=== PATIENT | female | born 1995 | race Caucasian/White ===

== ENCOUNTER 2016-11-22 13:59 | Emergency (ER) | payer OTHER ==
[~2016-11-22] VITALS: Ht 165.1 cm; Wt 54.4 kg
[~2016-11-22 13:59] MED LIST: ORTHO TRI-CYCL1 EACH PO; TRAMADOL HCL50 MG ORAL
[2016-11-22] MEDS ORDERED: NKM (14:19)
[2016-11-22 14:25] VITALS: BP 120/82
[2016-11-22] MEDS ORDERED: Lidocaine 2% Visc 15ml soln ORAL ONE (14:30)
[2016-11-22] MEDS ORDERED: Mylanta II UD 30ml ORAL ONE (14:30)
[2016-11-22] MEDS ORDERED: Dicyclomine HCl 10mg/5ml oral soln ORAL ONE (14:30)
[2016-11-22 14:47] LABS: APPEARANCE,URINE SLIGHTLY CLOUDY; KETONES,URINE NEGATIVE (NEGATIVE); LEUKOCYTE ESTERASE ,URINE 1+ (NEGATIVE); NITRITE,URINE NEGATIVE (NEGATIVE); PH,URINE 7 (4.5-8.0); PROTEIN,URINE NEGATIVE (NEGATIVE); UROBILINOGEN,URINE NORMAL MG/DL (0.0-1.0)
[2016-11-22 15:14] LABS: AMORPHOUS SEDIMENT,UR MODERATE /LPF; BACTERIA,URINE FEW /HPF; RBC,URINE 0-2 /HPF (0 - 2); SQUAMOUS EPITHELIAL CELL,UR MODERATE /LPF (NONE/OCC); WBC,URINE 0-2 /HPF (0 - 2)
[2016-11-22 15:42] LABS: BASOPHILS % (AUTO) 1.3 % (0.0-2.0); EOSINOPHILS % (AUTO) 1.8 % (0.0-3.0); LYMPHOCYTES % (AUTO) 26.8 % (20.0-45.0); MEAN CORPUSCULAR HEMOGLOBIN 33.8 PG (27.0-31.0); MEAN CORPUSCULAR HGB CONC 34.4 G/DL (32.0-36.0); MEAN CORPUSCULAR VOLUME 98 FL (80-99); MEAN PLATELET VOLUME 7.8 FL (6.5-10.1); MONOCYTES % (AUTO) 9.9 % (1.0-10.0); NEUTROPHILS % (AUTO) 60.1 % (45.0-75.0); PLATELET COUNT 306 K/UL (150-450); RED BLOOD COUNT 4.48 M/UL (4.20-5.40); RED CELL DISTRIBUTION WIDTH 10.9 % (11.6-14.8); WHITE BLOOD COUNT 7.1 K/UL (4.8-10.8)
[2016-11-22 16:00] VITALS: BP 110/69
[2016-11-22 16:13] LABS: ALANINE AMINOTRANSFERASE 17 U/L (3-33); ALBUMIN/GLOBULIN RATIO 1.8 (1.0-2.7); ANION GAP 15 (5-15); ASPARTATE AMINO TRANSFERASE 19 U/L (5-40); CARBON DIOXIDE 26 mEQ/L (20-30); CHLORIDE 97 mEQ/L (98-107); CREATININE 0.8 mg/dL (0.5-0.9); GLOMERULAR FILTRATION RATE > 60 mL/min (>60); HEMOLYSIS 10; POTASSIUM 3.9 mEQ/L (3.4-4.9); SODIUM 138 mEQ/L (135-145); TOTAL PROTEIN 7.8 g/dL (6.6-8.7)
[2016-11-22] MEDS ORDERED: ZOFRAN4 M3 ORAL (16:24)
[2016-11-22 16:32] VITALS: BP 110/69
--- NOTE | 2016-11-22 22:51 | Emergency Room Report ---
History of Present Illness General Chief Complaint: Abdominal Pain Source: Patient Present Illness HPI The patient is a 20-year-old female who denies any medical history presenting for abdominal pain, nausea, and diarrhea. The patient denies any recent travel but does admit to her mother as sick contact who has had similar symptoms. The patient describes pain as a 4-10 dull ache to the mid abdomen and does not radiate. No known provoking relieving factors. The patient does admit to nausea but denies any vomiting. She denies any other symptoms including fever, chills, rash, FORBES, dizziness, CP Allergies: Coded Allergies: No Known Allergies (Unverified , 10/20/14) Patient History Past Medical History: see triage record Pertinent Family History: none Last Menstrual Period: 10/21/16 Reviewed Nursing Documentation: PMH: Agreed, PSxH: Agreed Nursing Documentation-PMH Past Medical History: No Stated History Review of Systems All Other Systems: negative except mentioned in HPI Physical Exam Vital Signs Date Time Temp Pulse Resp B/P Pulse Ox O2 Delivery O2 Flow Rate FiO2 11/22/16 14:14 98.1 85 16 120/82 99 Room Air Sp02 EP Interpretation: reviewed, normal General Appearance: no apparent distress, alert, GCS 15, non-toxic Head: normocephalic, atraumatic Eyes: bilateral eye PERRL, bilateral eye normal inspection ENT: hearing grossly normal, normal pharynx, no angioedema, normal voice Respiratory: chest non-tender, lungs clear, normal breath sounds, speaking full sentences Gastrointestinal: normal bowel sounds, soft, non-distended, no guarding, no rebound, tenderness - epigastric Genitourinary: normal inspection, no CVA tenderness Neurologic: alert, oriented x3, responsive, motor strength/tone normal, sensory intact, speech normal Psychiatric: judgement/insight normal, memory normal, mood/affect normal, no suicidal/homicidal ideation Skin: normal color, no rash, warm/dry, well hydrated Lymphatic: no adenopathy Medical Decision Making PA Attestation Dr. dahl is my supervising physician. Patient management was discussed with my supervising physician Diagnostic Impression: Primary Impression: Gastroenteritis ER Course The patient is a 20-year-old female presenting with abdominal pain, nausea, and diarrhea Differential diagnoses considered but not limited to: Gastroenteritis, GERD, gastritis, appendicitis, pancreatitis, menstruation PE: Vitals WNL. NAD. Abdomen: Normal appearance. Non distended. No ecchymosis. + Epigastric TTP. No McBurney point tenderness. No guarding. No CVA tenderness Lab work is unremarkable. The patient was given a GI cocktail, IV fluids, Zofran and is feeling better. To be discharged home with a prescription for Zofran and will continue to take in plenty fluids. ER precautions are given Laboratory Tests Test 11/22/16 14:20 11/22/16 14:44 Urine Color Pale yellow Urine Appearance Slightly cloudy Urine pH 7 (4.5-8.0) Urine Specific [place] 1.010 (1.005-1.035) Urine Protein Negative (NEGATIVE) Urine Glucose (UA) Negative (NEGATIVE) Urine Ketones Negative (NEGATIVE) Urine Occult Blood Negative (NEGATIVE) Urine Nitrite Negative (NEGATIVE) Urine Bilirubin Negative (NEGATIVE) Urine Urobilinogen Normal MG/DL (0.0-1.0) Urine Leukocyte Esterase 1+ (NEGATIVE) H Urine RBC 0-2 /HPF (0 - 2) Urine WBC 0-2 /HPF (0 - 2) Urine Squamous Epithelial Cells Moderate /LPF (NONE/OCC) H Urine Amorphous Sediment Moderate /LPF (NONE) H Urine Bacteria Few /HPF (NONE) Urine HCG, Qualitative Negative White Blood Count 7.1 K/UL (4.8-10.8) Red Blood Count 4.48 M/UL (4.20-5.40) Hemoglobin 15.1 G/DL (12.0-16.0) Hematocrit 44.0 % (37.0-47.0) Mean Corpuscular Volume 98 FL (80-99) Mean Corpuscular Hemoglobin 33.8 PG (27.0-31.0) H Mean Corpuscular Hemoglobin Concent 34.4 G/DL (32.0-36.0) Red Cell Distribution Width 10.9 % (11.6-14.8) L Platelet Count 306 K/UL (150-450) Mean Platelet Volume 7.8 FL (6.5-10.1) Neutrophils (%) (Auto) 60.1 % (45.0-75.0) Lymphocytes (%) (Auto) 26.8 % (20.0-45.0) Monocytes (%) (Auto) 9.9 % (1.0-10.0) Eosinophils (%) (Auto) 1.8 % (0.0-3.0) Basophils (%) (Auto) 1.3 % (0.0-2.0) Sodium Level 138 mEQ/L (135-145) Potassium Level 3.9 mEQ/L (3.4-4.9) Chloride Level 97 mEQ/L (98-107) L Carbon Dioxide Level 26 mEQ/L (20-30) Anion Gap 15 (5-15) Blood Urea Nitrogen 10 mg/dL (7-23) Creatinine 0.8 mg/dL (0.5-0.9) Estimate Glomerular Filtration Rate > 60 mL/min (>60) Glucose Level 92 mg/dL (74-106) Calcium Level 10.0 mg/dL (8.6-10.2) Total Bilirubin 0.5 mg/dL (0.0-1.2) Aspartate Amino Transferase (AST) 19 U/L (5-40) Alanine Aminotransferase (ALT) 17 U/L (3-33) Alkaline Phosphatase 74 U/L (35-104) Total Protein 7.8 g/dL (6.6-8.7) Albumin 5.1 g/dL (3.5-5.2) Globulin 2.7 g/dL Albumin/Globulin Ratio 1.8 (1.0-2.7) Lab Results Impression All unremarkable Last Vital Signs Date Time Temp Pulse Resp B/P Pulse Ox O2 Delivery O2 Flow Rate FiO2 11/22/16 16:32 98.0 79 16 110/69 99 Room Air Status: improved Disposition: HOME, SELF-CARE Condition: Improved Scripts Ondansetron* (ZOFRAN*) 4 Mg Tablet 4 MG ORAL Q6H Y for Nausea & Vomiting, #15 TAB Prov: JUAN SANTILLAN 11/22/16 Patient Instructions: Viral Gastroenteritis, Adult, Abdominal Pain, Adult Additional Instructions: I discussed my findings with the patient. All questions and concerns have been answered. Treatment and medication compliance have been addressed. I advised the patient that they need to follow up with PMD in 3-5 days. Return to ED if symptoms worsen, new symptoms arise, or if needed for any reason. Patient verbalized understanding of discharge instructions. JUAN SANTILLAN November 22, 2016 22:51
== END 2016-11-22 16:32 | disposition home or self-care (01) ==
LOC: EMR 14:46
DX: K52.9 Noninfective gastroenteritis and colitis, unspecified (principal)
CPT/HCPCS: 36415; 80053; 81003; 81025; 85025; 96360; 96374; 99284; J2405

== ENCOUNTER 2017-03-14 19:05 | Emergency (ER) | payer OTHER ==
[~2017-03-14] VITALS: Ht 165.1 cm; Wt 61.2 kg
[~2017-03-14 19:05] MED LIST changes: +NKM; +ZOFRAN4 M3 ORAL
[2017-03-14] MEDS ORDERED: MELATONIN1 M2 PO (19:13)
[2017-03-14 19:25] VITALS: BP 125/83
[2017-03-14] MEDS ORDERED: LORazepam 0.5mg tab ORAL ONE (19:30)
--- NOTE | 2017-03-14 19:52 | Emergency Room Report ---
History of Present Illness General Chief Complaint: Flu Like Symptoms Source: Patient Present Illness HPI 21 YO Female presents to the ED c/o feeling short of breath, as though she cannot inhale completely. denies cardiac hx, denies night sweats or changes in weight, reports intermittent cough x 2 days, denies wheezing, fevers, chills, sore throat, body aches, or rashes. pt. reports occasional heartburn, but not regularly. was on prozac for JOJO several years ago. Denies recent travel, denies painful respirations. Denies sputum production. Patient states her episodes of feeling short of breath are intermittent x2 weeks and began just prior to her finals. 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 Denies Palpitations, LOC, AMS, dizziness, Changes in Vision, Sensation, paresthesias, or a sudden severe headache. Allergies: Coded Allergies: No Known Allergies (Unverified , 10/20/14) Patient History Past Medical History: see triage record Past Surgical History: none Pertinent Family History: none Last Menstrual Period: doesnt remember Now: No Immunizations: UTD Reviewed Nursing Documentation: PMH: Agreed, PSxH: Agreed Nursing Documentation-PMH Past Medical History: No Stated History Review of Systems All Other Systems: negative except mentioned in HPI Physical Exam Vital Signs Date Time Temp Pulse Resp B/P (MAP) Pulse Ox O2 Delivery O2 Flow Rate FiO2 03/14/17 19:08 98.1 79 20 125/83 100 Room Air Sp02 EP Interpretation: reviewed, normal General Appearance: no apparent distress, alert, GCS 15, non-toxic Head: normocephalic, atraumatic Eyes: bilateral eye normal inspection, bilateral eye PERRL ENT: hearing grossly normal, normal pharynx, no angioedema, normal voice, uvula midline, moist mucus membranes Neck: full range of motion, supple/symm/no masses Respiratory: chest non-tender, lungs clear, normal breath sounds, no respiratory distress, no wheezing, speaking full sentences Cardiovascular #1: regular rate, rhythm, no edema Gastrointestinal: normal bowel sounds, non tender, soft, no guarding, no rebound Rectal: deferred Genitourinary: normal inspection, no CVA tenderness Musculoskeletal: back normal, gait/station normal, normal range of motion, non- tender Neurologic: alert, oriented x3, responsive, motor strength/tone normal, sensory intact, speech normal Psychiatric: judgement/insight normal, memory normal, mood/affect normal, anxious Skin: normal color, no rash, warm/dry, well hydrated Lymphatic: no adenopathy Medical Decision Making PA Attestation Dr. Arreola is my supervising Physician whom patient management has been discussed with. Diagnostic Impression: Primary Impression: SOB (shortness of breath) Additional Impressions: History of anxiety History of heartburn ER Course 21 YO Female presents to the ED c/o feeling short of breath, as though she cannot inhale completely. denies cardiac hx, denies night sweats or changes in weight, reports intermittent cough x 2 days, denies wheezing, fevers, chills, sore throat, body aches, or rashes. pt. reports occasional heartburn, but not regularly. was on prozac for JOJO several years ago. Denies recent travel, denies painful respirations. Denies sputum production. Patient states her episodes of feeling short of breath are intermittent x2 weeks and began just prior to her finals. 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 Denies Palpitations, LOC, AMS, dizziness, Changes in Vision, Sensation, paresthesias, or a sudden severe headache. Ddx considered but are not limited to anxiety, [place], PE, asthma, thyroid storm, hyperthyroid, EPS Vital signs: are WNL, pt. is afebrile H&PE are most consistent with anxiety attack ORDERS: none required at this time, the diagnosis is clinical ED INTERVENTIONS: -0.5 mg Ativan PO -Zantac 150mg PO -Pt states her symptoms have resolved. I do not suspect an emergent condition at this time. with current presentation pt. is stable for close outpatient follow up. D/w pt. to return to ED with worsening or new symptoms. DISCHARGE: At this time pt. is stable for d/c to home. Will provide printed patient care instructions, and any necessary prescriptions. Care plan and follow up instructions have been discussed with the patient prior to discharge. Last Vital Signs Date Time Temp Pulse Resp B/P (MAP) Pulse Ox O2 Delivery O2 Flow Rate FiO2 03/14/17 19:25 98.1 20 125/83 100 Room Air 03/14/17 19:08 79 Disposition: HOME, SELF-CARE Condition: Stable Scripts Ranitidine Hcl* (ZANTAC*) 150 Mg Tablet 150 MG ORAL TWICE A DAY for 14 Days, #28 TAB Prov: Dania Haney 03/14/17 Buspirone Hcl* (BUSPAR*) 10 Mg Tablet 10 MG ORAL THREE TIMES A DAY, #15 TAB 0 Refills Prov: Dania Haney 03/14/17 Patient Instructions: Heartburn, Panic Attacks, [id number] Additional Instructions: Take medications as directed. Follow up with a Primary Care Provider in 3-5 days, even if your symptoms have resolved. --Please review list of primary care clinics, if you do not already have a primary care provider Return sooner to ED if new symptoms occur, or current symptoms become worse. - Please note that this Emergency Department Report was dictated using [email or web address] of quality improvement technology software, occasionally this can lead to erroneous entry secondary to interpretation by the dictation equipment. Dania Haney Mar 14, 2017 19:52
[2017-03-14] MEDS ORDERED: BUSPAR10 MG ORAL (20:06)
[2017-03-14] MEDS ORDERED: ZANTAC150 MG ORAL (20:06)
[2017-03-14 20:27] VITALS: BP 125/83
== END 2017-03-14 20:23 | disposition home or self-care (01) ==
LOC: EMR 19:41
DX: R06.02 Shortness of breath (principal); F41.9 Anxiety disorder, unspecified; R05 Cough
CPT/HCPCS: 99284

== ENCOUNTER 2017-03-22 19:11 | Emergency (ER) | payer OTHER ==
[~2017-03-22] VITALS: Ht 165.1 cm; Wt 61.2 kg
[~2017-03-22 19:11] MED LIST changes: +BUSPAR10 MG ORAL; +MELATONIN1 M2 PO; +ZANTAC150 MG ORAL
[2017-03-22 19:20] VITALS: BP 126/86
[2017-03-22] MEDS ORDERED: ROBAXIN-750750 MG PO (19:53)
[2017-03-22] MEDS ORDERED: IBUPROFEN600 MG ORAL (19:53)
[2017-03-22] MEDS ORDERED: Methocarbamol 750mg tab ORAL ONE (20:00)
[2017-03-22 20:25] VITALS: BP 126/86
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
== END 2017-03-22 20:25 | disposition home or self-care (01) ==
LOC: EMR 19:30
DX: M62.838 Other muscle spasm (principal); S16.1XXA Strain of muscle, fascia and tendon at neck level, initial encounter; V49.40XA Driver injured in collision with unspecified motor vehicles in traffic accident, initial encounter; Y92.410 Unspecified street and highway as the place of occurrence of the external cause
CPT/HCPCS: 99284

== ENCOUNTER 2017-10-13 12:54 | Emergency (ER) | payer OTHER ==
[~2017-10-13] VITALS: Ht 165.1 cm; Wt 59.0 kg
[~2017-10-13 12:54] MED LIST changes: +IBUPROFEN600 MG ORAL; +ROBAXIN-750750 MG PO
[2017-10-13] MEDS ORDERED: PEPCID40 MG PO (13:29)
[2017-10-13] MEDS ORDERED: Mylanta II UD 30ml ORAL ONE (13:30)
[2017-10-13] MEDS ORDERED: Lidocaine 2% Visc 15ml soln ORAL ONE (13:30)
[2017-10-13] MEDS ORDERED: Dicyclomine HCl 10mg/5ml oral soln ORAL ONE (13:30)
--- NOTE | 2017-10-13 13:31 | Emergency Room Report ---
History of Present Illness General Chief Complaint: Abdominal Pain Source: Patient Present Illness HPI 21-year-old female with no sig pmhx p/w epigastric abd pain for for one week. Patient states pain started gradually , localized to epigastric area, sometimes radiates up towards chest and down towards lower abdomen burning in nature, intermittent. No relieving or exacerbating factors. Denies nvd. No black or bloody stools Denies fever, chills. No hx of abdominal surgeries. No hx of endoscopies/colonoscopies. States that her dog had worms and she is concerned that she also has worms Allergies: Coded Allergies: No Known Allergies (Unverified , 10/20/14) Patient History Past Medical History: see triage record Past Surgical History: none Pertinent Family History: none Last Menstrual Period: 10/05/17 Reviewed Nursing Documentation: PMH: Agreed; PSxH: Agreed Nursing Documentation-PMH Past Medical History: No Stated History Review of Systems All Other Systems: negative except mentioned in HPI Physical Exam Vital Signs Date Time Temp Pulse Resp B/P (MAP) Pulse Ox O2 Delivery O2 Flow Rate FiO2 10/13/17 12:57 98.4 84 18 123/88 96 Room Air 98.4 Sp02 EP Interpretation: reviewed, normal General Appearance: normal inspection, well appearing, no apparent distress, alert, GCS 15, non-toxic Head: normocephalic, atraumatic Eyes: bilateral eye normal inspection, bilateral eye PERRL, bilateral eye EOMI ENT: normal ENT inspection, normal pharynx, normal voice, moist mucus membranes Neck: normal inspection, full range of motion, supple Respiratory: normal inspection, lungs clear, normal breath sounds, no respiratory distress, no retraction, no wheezing, speaking full sentences, chest symmetrical Cardiovascular #1: normal inspection, regular rate, rhythm, no edema, normal capillary refill Cardiovascular #2: 2+ radial (R), 2+ radial (L) Gastrointestinal: normal inspection, non tender, soft, non-distended, no guarding Musculoskeletal: normal inspection, back normal, normal range of motion, non- tender Neurologic: normal inspection, alert, oriented x3, responsive, motor strength/ tone normal, sensory intact, normal gait, speech normal Psychiatric: normal inspection, judgement/insight normal, memory normal Skin: normal inspection, normal color, no rash, warm/dry, well hydrated, normal turgor Medical Decision Making Diagnostic Impression: Primary Impression: Abdominal pain ER Course 21-year-old female with epigastric abdominal pain Abdominal exam is unremarkable Differential Diagnosis: Gastritis, gastroenteritis, cholecystitis, appendicitis, diverticulitis, UTI/ pyelo At this time abdomen is soft nontender, not likely to have acute intra- abdominal surgical pathology, will hold CT for now. Plan: Basic labs, ua Pepcid, maalox, pain control, IVF ER course: Patient has remained stable during ED stay. pain improved Disposition: Patient is to be discharged to home. Prescriptions given are Pepcid Patient is instructed to follow up with their primary care doctor within 5 days. Patient is instructed to follow up with gastroenterology if she continues to have persistent symptoms she may need endoscopy Strict return precautions discussed with patient such as fever, chills, worsening/severe abdominal pain, nausea, vomiting, black or bloody stools, which may indicate severe illness. Patient verbalizes understanding and agrees with plan. Please note that this Emergency Department Report was dictated using [employer] sweatband operator technology software, occasionally this can lead to erroneous entry secondary to interpretation by the dictation equipment Laboratory Tests Test 10/13/17 13:02 10/13/17 13:40 Urine Color Pale yellow Urine Appearance Clear Urine pH 8 (4.5-8.0) Urine Specific [place] 1.010 (1.005-1.035) Urine Protein Negative (NEGATIVE) Urine Glucose (UA) Negative (NEGATIVE) Urine Ketones Negative (NEGATIVE) Urine Occult Blood Negative (NEGATIVE) Urine Nitrite Negative (NEGATIVE) Urine Bilirubin Negative (NEGATIVE) Urine Urobilinogen Normal MG/DL (0.0-1.0) Urine Leukocyte Esterase Negative (NEGATIVE) Urine HCG, Qualitative Negative (NEGATIVE) Sodium Level 142 MMOL/L (136-145) Potassium Level 4.2 MMOL/L (3.5-5.1) Chloride Level 103 MMOL/L (98-107) Carbon Dioxide Level 32 MMOL/L (21-32) Anion Gap 7 mmol/L (5-15) Blood Urea Nitrogen 9 mg/dL (7-18) Creatinine 0.8 MG/DL (0.55-1.30) Estimate Glomerular Filtration Rate > 60 mL/min (>60) Glucose Level 93 MG/DL (74-106) Calcium Level 9.5 MG/DL (8.5-10.1) Total Bilirubin 0.5 MG/DL (0.2-1.0) Aspartate Amino Transferase (AST) 14 U/L (15-37) L Alanine Aminotransferase (ALT) 23 U/L (12-78) Alkaline Phosphatase 60 U/L (46-116) Total Protein 7.5 G/DL (6.4-8.2) Albumin 4.4 G/DL (3.4-5.0) Globulin 3.1 g/dL Albumin/Globulin Ratio 1.4 (1.0-2.7) Lipase 196 U/L (73-393) White Blood Count 6.7 K/UL (4.8-10.8) Red Blood Count 4.37 M/UL (4.20-5.40) Hemoglobin 14.8 G/DL (12.0-16.0) Hematocrit 42.5 % (37.0-47.0) Mean Corpuscular Volume 97 FL (80-99) Mean Corpuscular Hemoglobin 33.9 PG (27.0-31.0) H Mean Corpuscular Hemoglobin Concent 34.8 G/DL (32.0-36.0) Red Cell Distribution Width 10.3 % (11.6-14.8) L Platelet Count 263 K/UL (150-450) Mean Platelet Volume 7.0 FL (6.5-10.1) Neutrophils (%) (Auto) 57.2 % (45.0-75.0) Lymphocytes (%) (Auto) 29.4 % (20.0-45.0) Monocytes (%) (Auto) 8.9 % (1.0-10.0) Eosinophils (%) (Auto) 2.7 % (0.0-3.0) Basophils (%) (Auto) 1.8 % (0.0-2.0) Last Vital Signs Date Time Temp Pulse Resp B/P (MAP) Pulse Ox O2 Delivery O2 Flow Rate FiO2 10/13/17 12:57 98.4 84 18 123/88 96 Room Air 98.4 Disposition: HOME, SELF-CARE Condition: Improved Scripts Famotidine (PEPCID) 40 Mg Tablet 40 MG PO DAILY, #7 TAB 0 Refills Prov: Deandra Malave M.D. 10/13/17 Patient Instructions: Abdominal Pain, Adult Additional Instructions: PLEASE SEE YOUR PCP IN 1 WEEK PLEASE SEE A TECHNICAL SALES DIRECTOR IF YOU CONTINUE TO HAVE PERSISTENT SYMPTOMS Deandra Malave M.D. Oct 13, 2017 13:31
[2017-10-13 13:52] LABS: BASOPHILS % (AUTO) 1.8 % (0.0-2.0); EOSINOPHILS % (AUTO) 2.7 % (0.0-3.0); HEMATOCRIT 42.5 % (37.0-47.0); HEMOGLOBIN 14.8 G/DL (12.0-16.0); LYMPHOCYTES % (AUTO) 29.4 % (20.0-45.0); MEAN CORPUSCULAR VOLUME 97 FL (80-99); MONOCYTES % (AUTO) 8.9 % (1.0-10.0); NEUTROPHILS % (AUTO) 57.2 % (45.0-75.0); PLATELET COUNT 263 K/UL (150-450); RED BLOOD COUNT 4.37 M/UL (4.20-5.40); RED CELL DISTRIBUTION WIDTH 10.3 % (11.6-14.8); WHITE BLOOD COUNT 6.7 K/UL (4.8-10.8)
[2017-10-13 13:53] LABS: APPEARANCE,URINE CLEAR; BILIRUBIN, URINE NEGATIVE (NEGATIVE); COLOR,URINE PALE YELLOW; GLUCOSE, URINE (UA) NEGATIVE (NEGATIVE); KETONES,URINE NEGATIVE (NEGATIVE); LEUKOCYTE ESTERASE ,URINE NEGATIVE (NEGATIVE); NITRITE,URINE NEGATIVE (NEGATIVE); PH,URINE 8 (4.5-8.0); PROTEIN,URINE NEGATIVE (NEGATIVE); UROBILINOGEN,URINE NORMAL MG/DL (0.0-1.0)
[2017-10-13 14:02] LABS: ANION GAP 7 mmol/L (5-15); BLOOD UREA NITROGEN 9 mg/dL (7-18); CALCIUM 9.5 MG/DL (8.5-10.1); CARBON DIOXIDE 32 MMOL/L (21-32); CHLORIDE 103 MMOL/L (98-107); CREATININE 0.8 MG/DL (0.55-1.30); POTASSIUM 4.2 MMOL/L (3.5-5.1); SODIUM 142 MMOL/L (136-145)
[2017-10-13 14:07] LABS: ALANINE AMINOTRANSFERASE 23 U/L (12-78); ALBUMIN 4.4 G/DL (3.4-5.0); ALBUMIN/GLOBULIN RATIO 1.4 (1.0-2.7); ALKALINE PHOSPHATASE 60 U/L (46-116); ASPARTATE AMINO TRANSFERASE 14 U/L (15-37); BILIRUBIN,TOTAL 0.5 MG/DL (0.2-1.0)
[2017-10-13 18:57] VITALS: BP 128/72
== END 2017-10-13 14:43 | disposition home or self-care (01) ==
LOC: EMR 13:10
DX: R10.13 Epigastric pain (principal)
CPT/HCPCS: 36415; 80053; 81003; 81025; 83690; 85025; 96374; 96375; 99284; J2405; S0028

== ENCOUNTER 2018-05-13 13:08 | Emergency (ER) | payer OTHER ==
[~2018-05-13] VITALS: Ht 162.6 cm; Wt 59.0 kg
[~2018-05-13 13:08] MED LIST changes: +PEPCID40 MG PO
[2018-05-13] MEDS ORDERED: Acetaminophen 500mg (ES) tab ORAL ONE (14:15)
[2018-05-13 14:20] VITALS: BP 130/78
--- NOTE | 2018-05-13 14:52 | Diagnostic Imaging Report ---
Indication: Knee Pain 3 views of the left knee were obtained. Findings: No acute fracture, malalignment, or joint effusion are identified. Joint space is relatively well-maintained. Anterior prepatellar soft tissue swelling is noted. Impression: No acute fracture. Prepatellar contusion versus bursitis
[2018-05-13] MEDS ORDERED: CEPHALEXIN500 MG ORAL (15:00)
[2018-05-13] MEDS ORDERED: TYLENOL EXTRA500 MG ORAL (15:00)
--- NOTE | 2018-05-13 15:00 | Emergency Room Report ---
History of Present Illness General Chief Complaint: Skin Rash/Abscess Source: Patient Present Illness HPI 22-year-old female patient presents ER complaining of left knee pain for the past 2 days. Patient reports redness and swelling on the top left knee. Denies acute injury or trauma. Denies bug bite. Reports that she was on the ground and her knee rubbed against the carpet recently, states may have been caused by that. Denies fever, chest pain, shortness of breath. Denies vomiting or abdominal pain. Reports pain with ambulation. reports coworker recently had similar symptoms on lower leg. Allergies: Coded Allergies: No Known Allergies (Unverified , 10/20/14) Patient History Past Medical History: see triage record Now: No Reviewed Nursing Documentation: PMH: Agreed; PSxH: Agreed Nursing Documentation-PMH Past Medical History: No Stated History Review of Systems All Other Systems: negative except mentioned in HPI Physical Exam Vital Signs Date Time Temp Pulse Resp B/P (MAP) Pulse Ox O2 Delivery O2 Flow Rate FiO2 05/13/18 13:11 98.1 100 17 127/84 97 Room Air Sp02 EP Interpretation: reviewed, normal General Appearance: well appearing, no apparent distress, alert, GCS 15, non- toxic Head: normocephalic, atraumatic Eyes: bilateral eye normal inspection, bilateral eye PERRL ENT: hearing grossly normal, normal pharynx, no angioedema, normal voice, uvula midline, moist mucus membranes Neck: full range of motion Respiratory: lungs clear, normal breath sounds, no rhonchi, no respiratory distress, no accessory muscle use, no wheezing, speaking full sentences Cardiovascular #1: regular rate, rhythm, no edema Musculoskeletal: back normal, digits/nails normal, gait/station normal, normal range of motion, swelling - mild edema suprapatellar, other - NVI, tender - anterior left knee, suprapatellar Neurologic: alert, oriented x3, responsive, motor strength/tone normal, sensory intact Psychiatric: mood/affect normal Skin: other - erythema and edema noted over the left anterior knee, no fluctuance or induration, no red streaking, no palpable no palpable mass Medical Decision Making PA Attestation Dr. Schuster is my supervising Physician whom patient management has been discussed with. Diagnostic Impression: Primary Impression: Cellulitis ER Course Pt. presents to the ED c/o pain, reddness, and swelling over left knee. Ddx considered but are not limited to fracture, sprain, strain, contusion, dislocation. no fever, nontoxic appearing, no loss or ROM, low suspicion for septic joint. Soft compartments, no pulselessness, no pallor, no paresthesias, low suspicion for compartment syndrome at this time. Vital signs: are WNL, pt. is afebrile Ordered X-ray and pain medication. ER COURSE Provided with pain medication. An X-ray of left knee shows no acute fracture, prepatellar contusion versus bursitis the official reading. Low suspicion for septic joint. likely cellulitis causing pain symptoms. follow-up with PCP or return to ER in 2 -3 days for wound check. Crutches declined. Ankur wrap and splint declined. Patient instructed on RICE method: rest, ice, compression, elevation. Patient instructed to be WBAT Contact information for orthopedic urgent care provided, follow-up with urgent care if unable to followup with primary care provider and get referral to obgyn specialist. Followup with primary care provider. Discuss referral to ortho/pain management/ PT as needed. Discuss further imaging with MRI/CT as needed. ER precautions given. Patient reports pain symptoms improved while in the ER. DISCHARGE: -Rx provided for Tylenol for pain symptoms. -Rx provided for Keflex At this time pt. is stable for d/c to home. Patient is resting comfortably, in no acute distress, nontoxic appearing, talking without difficulty. Will provide printed patient care instructions, and any necessary prescriptions. Patient instructed to follow with primary care provider in 2-3 days and to request further follow-up as needed. Care plan and follow up instructions have been discussed with the patient prior to discharge. Take medications as directed. Patient questions asked and answered. Patient reports understanding and agreement to treatment plan. ER precautions given, patient instructed to return to ER immediately for any new or worsening of symptoms. - Please note that this Emergency Department Report was dictated using [employer] transcription supervisor technology software, occasionally this can lead to erroneous entry secondary to interpretation by the dictation equipment. Last Vital Signs Date Time Temp Pulse Resp B/P (MAP) Pulse Ox O2 Delivery O2 Flow Rate FiO2 05/13/18 13:11 98.1 100 17 127/84 97 Room Air Status: improved Disposition: HOME, SELF-CARE Condition: Stable Scripts Acetaminophen* (TYLENOL EXTRA STRENGTH*) 500 Mg Tablet 500 MG ORAL Q8H PRN for Prn Headache/Temp > 101, #30 TAB 0 Refills Prov: Eyal Stevens 05/13/18 Cephalexin* (KEFLEX*) 500 Mg Capsule 500 MG ORAL EVERY 12 HOURS, #14 CAP 0 Refills Prov: Eyal Stevens 05/13/18 Referrals: NOT CHOSEN IPA/MD,REFERRING (PCP) Patient Instructions: Cellulitis, [id number] Additional Instructions: Patient instructed to follow up with primary care provider and discuss further referral to orthopedics/physical therapy/pain management as needed. If unable to followup with PCP, followup with orthopedic urgent care in 5-7 days , call to schedule appointment. Patient instructed on RICE method: rest, ice, compression, elevation. Patient instructed to WBAT. Take medications as directed. Patient questions asked and answered. ER precautions given, patient instructed to return to ER immediately for any new or worsening of symptoms. [facility] [address] [facility] [address] [facility], [address] [email or web address] Eyal Stevens May 13, 2018 15:00
[2018-05-13 15:16] VITALS: BP 133/78
== END 2018-05-13 15:25 | disposition home or self-care (01) ==
LOC: EMR 13:50
DX: L03.116 Cellulitis of left lower limb (principal)
CPT/HCPCS: 99283

== ENCOUNTER 2018-09-20 14:07 | Emergency (ER) | payer OTHER ==
[~2018-09-20] VITALS: Ht 165.1 cm; Wt 59.0 kg
[~2018-09-20 14:07] MED LIST changes: +CEPHALEXIN500 MG ORAL; +TYLENOL EXTRA500 MG ORAL
[2018-09-20] MEDS ORDERED: IBUPROFEN600 MG ORAL (14:32)
[2018-09-20] MEDS ORDERED: AMOXICILLIN500 MG ORAL (14:32)
--- NOTE | 2018-09-20 14:32 | Emergency Room Report ---
History of Present Illness General Chief Complaint: Sore Throat Source: Patient Present Illness HPI 22-year-old female patient presents the ER complaining of sore throat for the past week. Denies abdominal pain. Denies chest pain or shortness of breath. Reports no fever however has not checked temperature. Reports is attempted gargling baking soda and other [id number]-[id number]-[id number] remedies without relief of symptoms. Reports pain with swallowing. Denies difficulty breathing. Reports swollen lymph nodes. Denies other aggravating or relieving factors. Allergies: Coded Allergies: No Known Allergies (Unverified , 10/20/14) Patient History Past Medical History: see triage record Last Menstrual Period: patient states 'missed period' Reviewed Nursing Documentation: PMH: Agreed; PSxH: Agreed Nursing Documentation-PMH Past Medical History: No Stated History Review of Systems All Other Systems: negative except mentioned in HPI Physical Exam Vital Signs Date Time Temp Pulse Resp B/P (MAP) Pulse Ox O2 Delivery O2 Flow Rate FiO2 09/20/18 14:14 98.2 83 16 128/87 97 Room Air Sp02 EP Interpretation: reviewed, normal General Appearance: well appearing, no apparent distress, alert, GCS 15, non- toxic Head: normocephalic, atraumatic Eyes: bilateral eye normal inspection, bilateral eye PERRL ENT: hearing grossly normal, normal pharynx, no angioedema, normal voice, TMs + canals normal, uvula midline, moist mucus membranes, tonsillar swelling, pharyngeal erythema, tonsillar exudate Neck: full range of motion, no meningismus, no bony tend Respiratory: lungs clear, normal breath sounds, no rhonchi, no respiratory distress, no accessory muscle use, no wheezing, speaking full sentences Cardiovascular #1: regular rate, rhythm, no edema Musculoskeletal: back normal, digits/nails normal, gait/station normal, normal range of motion, non-tender Psychiatric: mood/affect normal Lymphatic: adenopathy - cervical Medical Decision Making PA Attestation Dr. Baldwin is my supervising Physician whom patient management has been discussed with. Diagnostic Impression: Primary Impression: Tonsillitis ER Course Pt presents to ED c/o sore throat. DDX considered but are not limited to influenza, viral URI, strep throat, pharyngitis, tonsillitis. no uvula deviation, no neck stiffness, no stridor, no tripoding, low suspicion for peritonsillar abscess. VITAL SIGNS are WNL, patient is afebrile ER COURSE: tonsillar exudates, pharyngeal erythema, lymphadenopathy, no cough, likely tonsillitis. Will provide antibiotic treatment. Continue taking Tylenol for relief of symptoms. saltwater gargles. Drink plenty of fluids. Symptomatic treatment. DISCHARGE: Rx provided for amoxicillin -Rx given for Acetaminophen for fever/pain. At this time pt is stable for d/c to home. Patient resting comfortably, in no acute distress, nontoxic appearing, talking without difficulty Patient to take medications as instructed. Will provide with patient care instructions and any necessary prescriptions. Care plan and follow-up instructions provided. Patient instructed to follow-up with primary care provider in 3 - 5 days. Patient questions asked and answered. ER precautions given. Patient instructed to return to ER immediately for any new or worsening of symptoms including but not limited to fever, SOB, difficulty swallowing. - Please note that this Emergency Department Report was dictated using [employer] truck driver technology software, occasionally this can lead to erroneous entry secondary to interpretation by the dictation equipment. Last Vital Signs Date Time Temp Pulse Resp B/P (MAP) Pulse Ox O2 Delivery O2 Flow Rate FiO2 09/20/18 14:14 98.2 83 16 128/87 97 Room Air Status: improved Disposition: HOME, SELF-CARE Condition: Stable Scripts Ibuprofen* (MOTRIN*) 600 Mg Tablet 600 MG ORAL Q8H PRN for For Pain, #30 TAB 0 Refills Prov: Eyal Stevens 09/20/18 Amoxicillin* (AMOXIL*) 500 Mg Capsule 500 MG ORAL EVERY 8 HOURS for 7 Days, #21 CAP Prov: Eyal Stevens 09/20/18 Patient Instructions: Tonsillitis Additional Instructions: Followup with primary care provider in 3 -5 days. Salt water gargles Take Tylenol or Motrin for pain and fever symptoms Drink plenty of water. Take medications as directed. Patient questions asked and answered. ER precautions given, patient instructed to return to ER immediately for any new or worsening of symptoms including but not limited to intractable vomiting, difficulty breathing, inability to eat. Eyal Stevens Sep 20, 2018 14:32
[2018-09-20 14:36] VITALS: BP 128/87
--- NOTE | 2018-09-20 14:41 | NUR ---
Patient was evaluated, treated and discharged with aftercare instructions by MD/PA
== END 2018-09-20 14:36 | disposition home or self-care (01) ==
LOC: EMR 14:30
DX: J03.90 Acute tonsillitis, unspecified (principal)
CPT/HCPCS: 99281

== ENCOUNTER 2019-12-14 14:30 | Emergency (ER) | payer OTHER ==
[~2019-12-14] VITALS: Ht 165.1 cm; Wt 68.0 kg
[~2019-12-14 14:30] MED LIST changes: +AMOXICILLIN500 MG ORAL
[2019-12-14 14:36] VITALS: BP 123/89
--- NOTE | 2019-12-14 14:40 | NUR ---
ED Nurse Note: Urine specimen obtained and sent to lab.
[2019-12-14 14:54] LABS: APPEARANCE,URINE CLEAR; BILIRUBIN, URINE NEGATIVE (NEGATIVE); GLUCOSE, URINE (UA) NEGATIVE (NEGATIVE); KETONES,URINE 3+ (NEGATIVE); LEUKOCYTE ESTERASE ,URINE NEGATIVE (NEGATIVE); NITRITE,URINE NEGATIVE (NEGATIVE); PH,URINE 7 (4.5-8.0); PROTEIN,URINE NEGATIVE (NEGATIVE); UROBILINOGEN,URINE NORMAL MG/DL (0.0-1.0)
[2019-12-14 14:55] LABS: COLOR,URINE YELLOW
--- NOTE | 2019-12-14 15:05 | NUR ---
ED Nurse Note: ERPA at bedside for Pelvic exam.
--- NOTE | 2019-12-14 15:15 | NUR ---
ED Nurse Note: Wet mount specimen sent to lab.
--- NOTE | 2019-12-14 15:29 | Emergency Room Report ---
History of Present Illness General Chief Complaint: Vaginal Source: Patient Present Illness HPI 24 YO Female Pt. presents to the ED c/o of Right-sided adnexal pain with radiation down the right leg x 2 weeks. Pt. reports initially feeling some pelvic pressure posteriorly. She reports intermittent 6/10 in severity sharp stabbing pains with certain movements, sitting down or sometimes at rest. She denies significant d/c other than normal amount. pt. reports feeling irritation so she used Monistat this am. She reports she does not normally use tampons however she just began. Pt. reports onset of symptoms after inserting first two. Pt. reports she has d/c'd tampon use. Pt. denies irregular bleeding/ spotting. She denies . She denies suspicion for STI but does report unprotected intercourse. She denies abdominal pain or tenderness. She denies fevers. She denies constipation or diarrhea. She reports frequency. She denies hematuria. No other aggravating or relieving factors at this time. Allergies: Coded Allergies: No Known Allergies (Unverified , 10/20/14) COVID-19 Screening Contact w/high risk pt: No Recent Travel to affected area: No Experienced COVID-19 symptoms?: No COVID-19 Testing performed REDUCING SALON ATTENDANT: No Patient History Past Medical History: see triage record Past Surgical History: none Pertinent Family History: none Last Menstrual Period: 12/01/19 Now: No Immunizations: UTD Reviewed Nursing Documentation: PMH: Agreed; PSxH: Agreed Nursing Documentation-PMH Past Medical History: No Stated History Review of Systems All Other Systems: negative except mentioned in HPI Physical Exam Vital Signs Date Time Temp Pulse Resp B/P (MAP) Pulse Ox O2 Delivery O2 Flow Rate FiO2 12/14/19 14:34 98.2 89 16 123/89 (100) 98 Room Air Sp02 EP Interpretation: reviewed, normal General Appearance: no apparent distress, alert, GCS 15, non-toxic Head: normocephalic, atraumatic Eyes: bilateral eye normal inspection, bilateral eye PERRL ENT: hearing grossly normal, normal voice Neck: full range of motion Respiratory: lungs clear, normal breath sounds, speaking full sentences Cardiovascular #1: regular rate, rhythm Gastrointestinal: normal bowel sounds, non tender, soft, non-distended, no guarding Rectal: deferred Genitourinary: normal inspection, no CVA tenderness, bladder normal, cervix normal, ext genitalia/vag normal - TTP , other Musculoskeletal: back normal, normal range of motion, gait/station normal, non- tender Neurologic: alert, motor strength/tone normal, oriented x3, sensory intact, responsive, speech normal Psychiatric: judgement/insight normal Lymphatic: no adenopathy Medical Decision Making PA Attestation Dr. Mark is my supervising Physician whom patient management has been discussed with. Diagnostic Impression: Primary Impression: Pelvic pain Additional Impression: Vaginal irritation ER Course 24 YO Female Pt. presents to the ED c/o of Right-sided adnexal pain with radiation down the right leg x 2 weeks. Pt. reports initially feeling some pelvic pressure posteriorly. She reports intermittent 6/10 in severity sharp stabbing pains with certain movements, sitting down or sometimes at rest. She denies significant d/c other than normal amount. pt. reports feeling irritation so she used Monistat this am. She reports she does not normally use tampons however she just began. Pt. reports onset of symptoms after inserting first two. Pt. reports she has d/c'd tampon use. Pt. denies irregular bleeding/ spotting. She denies . She denies suspicion for STI but does report unprotected intercourse. She denies abdominal pain or tenderness. She denies fevers. She denies constipation or diarrhea. She reports frequency. She denies hematuria. No other aggravating or relieving factors at this time. Ddx considered but are not limited to Diverticulitis, acute appendicitis, ovarian torsion, ectopic , PID, tubo-ovarian abscess, ovarian cyst. Vital signs: are WNL, pt. is afebrile H&PE are most consistent with possible ovarian cyst, however due to presentation will r/o torsion, ectopic, and stone. ORDERS: -UA: unremarkable other than Ketones -Wet Mount: WNL -URINE HCG:Negative -Pelvic US Complete: Unremarkable. ED INTERVENTIONS: - Rocephin IM -I do not identify an emergent condition at this time. With current presentation , pt. is stable for close outpatient follow up and conservative treatment. D/ w pt. to return promptly to ED with worsening or new symptoms.- Pt. verbalizes' understanding and agreement with proposed treatment plan. DISCHARGE: At this time pt. is stable for d/c to home. Will provide printed patient care instructions, and any necessary prescriptions. Care plan and follow up instructions have been discussed with the patient prior to discharge. Labs Test 12/14/19 14:41 Urine Color Yellow Urine Appearance Clear Urine pH 7 (4.5-8.0) Urine Specific [place] 1.005 (1.005-1.035) Urine Protein Negative (NEGATIVE) Urine Glucose (UA) Negative (NEGATIVE) Urine Ketones 3+ (NEGATIVE) Urine Blood Negative (NEGATIVE) Urine Nitrite Negative (NEGATIVE) Urine Bilirubin Negative (NEGATIVE) Urine Urobilinogen Normal MG/DL (0.0-1.0) Urine Leukocyte Esterase Negative (NEGATIVE) Urine HCG, Qualitative Negative (NEGATIVE) CT/MRI/US Diagnostic Results CT/MRI/US Diagnostic Results : Imaging Test Ordered: US Pelvic: Transvaginal and transabdominal Impression FINDINGS: Uterus/cervix: The uterus measures 7.7 x 4.3 x 3.0 cm. There are no discrete fibroids. Endometrium measures up to 5 mm. Right ovary: In the right ovary measures 3.6 x 2.2 x 2.1 cm. There is no evidence of torsion. Left ovary: The left ovary measures 2.9 x 2.0 x 2.6 cm. There is no evidence of torsion. Free fluid: No free fluid. Bladder: Unremarkable as visualized. Wall is normal thickness for degree of distention. IMPRESSION: No acute intrapelvic process." " Per official radiology report- Please see report for specific details. Last Vital Signs Date Time Temp Pulse Resp B/P (MAP) Pulse Ox O2 Delivery O2 Flow Rate FiO2 12/14/19 14:36 98.2 89 16 123/89 98 Room Air Disposition: HOME, SELF-CARE Condition: Stable Scripts Doxycycline Hyclate* (VIBRAMYCIN*) 100 Mg Capsule 100 MG ORAL EVERY 12 HOURS for 7 Days, #14 CAP 0 Refills Prov: Dania Haney 12/14/19 Patient Instructions: Medical Screening Exam Additional Instructions: Take medications as directed. Follow up with a PCP or your SALVAGE INSPECTOR within 3-5 days, even if your symptoms have resolved. Return sooner to ED if new symptoms occur, or current symptoms become worse. - Please note that this Emergency Department Report was dictated using [employer]laundry bag punch operator technology software, occasionally this can lead to erroneous entry secondary to interpretation by the dictation equipment. Dania Haney Dec 14, 2019 15:29
[2019-12-14 16:30] VITALS: BP 118/75
--- NOTE | 2019-12-14 17:16 | NUR ---
ED Nurse Note: US tech at bedside.
[2019-12-14] MEDS ORDERED: Lidocaine 1% MPF 10mg/ml 5ml INJ ONE (17:45)
[2019-12-14] MEDS ORDERED: VIBRAMYCIN100 MG ORAL (17:46)
[2019-12-14 18:04] VITALS: BP 116/69
--- NOTE | 2019-12-14 18:04 | NUR ---
ED Nurse Note: Pt cleared by ERPA for discharge. DC instructions/prescription was given and explained to pt and verbalized understanding of teachings. All medical deviecs such as ID band removed. Pt is AAO x4, ambulatory and left with all personal belongings.
--- NOTE | 2019-12-14 18:19 | Diagnostic Imaging Report ---
EXAM: US Pelvis Transabdominal, Complete CLINICAL HISTORY: PAIN TECHNIQUE: Real-time complete transabdominal and endovaginal pelvic ultrasound with image documentation. COMPARISON: None FINDINGS: Uterus/cervix: The uterus measures 7.7 x 4.3 x 3.0 cm. There are no discrete fibroids. Endometrium measures up to 5 mm. Right ovary: In the right ovary measures 3.6 x 2.2 x 2.1 cm. There is no evidence of torsion. Left ovary: The left ovary measures 2.9 x 2.0 x 2.6 cm. There is no evidence of torsion. Free fluid: No free fluid. Bladder: Unremarkable as visualized. Wall is normal thickness for degree of distention. IMPRESSION: No acute intrapelvic process.
== END 2019-12-14 18:07 | disposition home or self-care (01) ==
LOC: EMR 15:08
DX: R10.2 Pelvic and perineal pain (principal); N89.8 Other specified noninflammatory disorders of vagina
CPT/HCPCS: 76830; 76856; 81003; 81025; 87210; 96372; 96374; 99284; J0696